=== PATIENT | female | born 1985 ===

== ENCOUNTER 2016-09-07 09:20 | Emergency (ER) | payer OTHER ==
[2016-09-07 10:40] VITALS: BMI 87.0
[2016-09-07] MEDS ORDERED: Lactated Ringer's 1,000 ML IV SCH (10:45)
[2016-09-07 11:44] LABS: BASO # 0.1 K/uL (0.0-0.2); BASO % 0.6 % (0.0-2.0); EOS # 0.1 K/uL (0.0-0.7); EOS % 1.3 % (0.0-4.0); HEMATOCRIT 29.1 % (34.0-47.0); LYMPH # 1.1 K/uL (1.0-4.3); MEAN CORPUSCULAR HGB CONC 33.7 g/dL (33.0-37.0); MEAN PLATELET VOLUME 8.3 fl (7.2-11.7); MONO # 0.6 K/uL (0.0-0.8); MONO % 7.2 % (0.0-10.0); NEUT % 78.9 % (50.0-75.0); RED CELL DISTRIBUTION WIDTH 15.4 % (11.5-14.5); WHITE BLOOD COUNT 8.8 K/uL (4.8-10.8)
[2016-09-07 11:54] LABS: RBC URINE 46 /hpf (0-3); URINE BACTERIA RARE (<OCC); URINE BILIRUBIN NEGATIVE (NEGATIVE); URINE BLOOD LARGE (NEGATIVE); URINE COLOR YELLOW (YELLOW); URINE GLUCOSE (UA) NEG (Normal); URINE KETONE NEGATIVE (NEGATIVE); URINE LEUKOCYTE ESTERASE LARGE Leu/uL (Negative); URINE PROTEIN 30 mg/dL (NEGATIVE); URINE UROBILINOGEN 0.2-1.0 mg/dL (0.2-1.0); WBC URINE 110 /hpf (0-5)
[2016-09-07 11:54] LABS: ALB/GLOB RATIO 0.8 (1.0-2.1); ALKALINE PHOSPHATASE 122 U/L (38-126); ALT/SGPT 18 U/L (9-52); AST/SGOT 26 U/L (14-36); BILIRUBIN,TOTAL 0.9 mg/dl (0.2-1.3); BLOOD UREA NITROGEN 3 mg/dl (7-17); CALCIUM 8.2 mg/dL (8.4-10.2); CARBON DIOXIDE 22 mmol/L (22-30); CHLORIDE 106 mmol/L (98-107); GFR AFRICAN-AMERICAN > 60; GLUCOSE,RANDOM 83 mg/dL (65-105); POTASSIUM 3.9 MMOL/L (3.6-5.0); SODIUM 141 mmol/l (132-148); TOTAL PROTEIN 7.1 G/DL (6.3-8.2)
--- NOTE | 2016-09-07 13:20 | OBHP ---
Datetime: 09/07/2016 10:35 IP Adm Impression: , intrauterine IP Admit Plan: Observation/Evaluation Admit Comment, IP Provider: at 33+4 wks presents with complaints of back and suprapubic since l ast night and fever of 103. Fever subsided with tylenol. States she heard 'popping sound' " that you hear when your water breaks". Denies hematuria, dysuria at present, but notes she did have it previou sly. Last coitus: 3 days ago. Kids are home sick with cold, running fevers. States renal u/s was done here recently. She received phone call last week, rx for antibiotics given. She has taken for past 2 days. PNC: [facility], Dr. Benson POBhx: 4 PMH: denies Medications: antibiotic Social: denies smoking. etoh Surgical: abdominoplasty Exam as above A: IUP 33+4 wks GA with UTI currently on antibiotic treatment, also with URI P: continuous FHT IVF CBC, CMP, UA Julio PGY1 Patient seen and examined with Dr. Ritter. Reassessment aferile, no leukocytosis, +anemia, UA: large blood , LE +, rare bacteria. Continue Antibiotics. Rx given for Feosol 325mg BID Follow up with Dr. Benson this week. ADDENDUM: PT seen and examined by me. Agree with above assessment and plan with following additions and cla rificatios: s: denies ctxs or vaginal bleeding; had noted urine in blood but not presently. she is uncertain o d name of antibiotic but is taking it. drinking water and oj USon 08/29 Renal : mild to moder rt hydronephrosis may be 2ndry to preg, no stones Bladder US: neg wbc 8.8 hgb 9.8 I: Hematuria- may be 2ndary to uti vs nephrolith Anemia Fever- at home most likely related to uri. nl wbc today P: d/c home. increase water intake. continue rx f/u fri in office- advised that urine cx will be ready by then rth w/ onset of fever, n, v or worsening pain Pelvic Type - PN: Adequate Extremities - PN: Normal Abdomen - PN: Normal Lungs - PN: Normal Heart - PN: Normal Neurologic - PN: Normal HEENT - PN: Normal General - PN: Normal FHR - Baseline A Provider: 140 Membranes, Provider: Intact Contraction Comments Provider: none Comments, ACOG Physical Exam: suprapubic tenderness- mild CVA tenderness- mild SSE: NO FLUID IN VAULT WITH AND WITHOUT VALSALVA. Pool Provider: Negative Nitrazine Provider: Negative Vital Signs Provider: Reviewed IP Chief Complaint: Maternal discomfort NICHD Variability Prov Fetus A: Moderate 6-25bpm NICHD Accel Fetus A IP Provider: 15X15 NICHD Decel Fetus A IP Provider: None Dilatation, Provider: 0 Effacement, Provider: 0 Station, Provider: -4 Genitourinary Exam: Normal
== END 2016-09-07 13:15 | disposition home or self-care (01) ==
LOC: H.EROB2 09:20
DX: O23.43 Unspecified infection of urinary tract in pregnancy, third trimester (principal); Z3A.33 33 weeks gestation of pregnancy

== ENCOUNTER 2016-09-28 14:15 | Emergency (ER) | payer OTHER ==
[2016-09-28 14:49] VITALS: BMI 39.4
--- NOTE | 2016-09-28 15:46 | OBHP ---
Datetime: 09/28/2016 15:36 IP Adm Impression: , intrauterine IP Admit Plan: Observation/Evaluation; Discharge home Admit Comment, IP Provider: Patient is a @ 36.4 wks with lower abdominal cramping, burning w ith urination, no vaginal bleeding, no leaking, +FM. Patient has no issues with antepartum or medical problems, x 4 previous with no complications, no previous surgeries, no allergies, no medicatio ns. Urine sent to lab. If any sign of infection will treat and send home wtih Macrobid. NO other sign s/symptoms of labor. Pelvic Type - PN: Adequate Extremities - PN: Normal Abdomen - PN: Normal Back - PN: Normal Breast - PN: Normal Lungs - PN: Normal Heart - PN: Normal Thyroid - PN: Normal Neurologic - PN: Normal HEENT - PN: Normal General - PN: Normal FHR - Baseline A Provider: 130 Contraction Comments Provider: irritability EGA AdmitDate IP: 36.4 Vital Signs Provider: Reviewed; Within Normal Limits IP Chief Complaint: Signs/symptoms UTI NICHD Variability Prov Fetus A: Moderate 6-25bpm NICHD Accel Fetus A IP Provider: [id number] NICHD Decel Fetus A IP Provider: None Genitourinary Exam: Normal DTRs - PN: Normal
[2016-09-28 15:48] LABS: RBC URINE 47 /hpf (0-3); URINE BACTERIA MOD (<OCC); URINE BILIRUBIN NEGATIVE (NEGATIVE); URINE BLOOD LARGE (NEGATIVE); URINE COLOR RED (YELLOW); URINE GLUCOSE (UA) NEG (Normal); URINE KETONE NEGATIVE (NEGATIVE); URINE LEUKOCYTE ESTERASE LARGE Leu/uL (Negative); URINE PROTEIN 100 mg/dL (NEGATIVE); URINE UROBILINOGEN 0.2-1.0 mg/dL (0.2-1.0); WBC URINE 134 /hpf (0-5)
--- NOTE | 2016-09-28 15:56 | OBDCSUM ---
Datetime: 09/28/2016 15:54 Discharged to, Provider: Home Follow up at, Provider: OB Disch Instr Activity: Normal activity Disch Instr Diet: Regular Discharge Instructions, Provider: Routine instructions given Discharge Time: 09/28/2016 15:54 Follow up in weeks, Provider: this week Disch Referrals: None Contraception discussed, Prov: No Discharge Comment, Provider: Return if increased bleeding, pain, temp Discharge Diagnosis Prov Other: UTI
== END 2016-09-28 16:10 | disposition home or self-care (01) ==
LOC: H.EROB2 14:15
DX: O23.43 Unspecified infection of urinary tract in pregnancy, third trimester (principal); Z3A.36 36 weeks gestation of pregnancy

== ENCOUNTER 2016-09-30 19:19 | Emergency (ER) | payer OTHER ==
[~2016-09-30 19:19] MED LIST: cefTRIAXone 2 GM in Sodium Chloride 0.9% 100 ML IVPB SCH
[2016-09-30] MEDS: Lactated Ringer's 1,000 ML IV SCH ×2 (20:40→21:40)
[2016-09-30 21:16] VITALS: BMI 39.3
[2016-09-30 21:48] LABS: RBC URINE 1019 /hpf (0-3); URINE BACTERIA OCC (<OCC); URINE BILIRUBIN NEGATIVE (NEGATIVE); URINE BLOOD LARGE (NEGATIVE); URINE COLOR RED (YELLOW); URINE GLUCOSE (UA) NEG (Normal); URINE KETONE NEGATIVE (NEGATIVE); URINE LEUKOCYTE ESTERASE LARGE Leu/uL (Negative); URINE PROTEIN 30 mg/dL (NEGATIVE); URINE UROBILINOGEN 0.2-1.0 mg/dL (0.2-1.0); WBC CLUMPS FEW /hpf; WBC URINE 457 /hpf (0-5)
--- NOTE | 2016-09-30 22:30 | OBHP ---
Datetime: 09/30/2016 20:54 IP Adm Impression: , intrauterine IP Admit Plan: Observation/Evaluation Admit Comment, IP Provider: Patient is a @ 36.6 wks presented to the [facility] after noticing elvia billiet dark red blood on her panties around 4pm. Since then every time she whipes she notices blood . Anay hernandez was here yesterday w/ complaints of lower abdominal cramping, burning with urination and was give n a script for Macrobid for treatment of her UTI. POBHX: 4 PMH: None PSH: Abdomenoplasty from [facility] Allergy: NKDA Med: PNV, Antibiotics for UTI ( does not recall name) Review of systems patient denies headache chest pain shortness of breath palpitations constipation positive for dysuria positive for hematuria no musculoskeletal or neurological complaints A/P Patient is a @ 36.6 wks w/ a UTI complaining of new onset of noticing of vaginal spoting - IV fluids - Recephin 3 grams - U/A and C_S - Continuous monitoring Branden Stahl PGY-1 The patient was seen with resident I agree with the note Patient noted to have resistant strain of Escherichia coli patient originally treated with Keflex will administer Rocephin patient to follow up in the office labor precautions provided Extremities - PN: Normal Abdomen - PN: Normal Lungs - PN: Normal Heart - PN: Normal General - PN: Normal FHR - Baseline A Provider: 135 Comments, ACOG Physical Exam: Suprapubic tenderness + Right CVA tenderness + EGA AdmitDate IP: 36.6 Vital Signs Provider: Reviewed; Within Normal Limits IP Chief Complaint: Signs/symptoms UTI NICHD Variability Prov Fetus A: Moderate 6-25bpm (Annotations: Data stored by CPN on behalf of user) NICHD Accel Fetus A IP Provider: 15X15 (Annotations: Data stored by CPN on behalf of user) FHR Category Provider Fetus A: Category I NICHD Decel Fetus A IP Provider: None
[2016-10-01] MEDS ORDERED: CEFTRIAXONE IVPB SCH (09:00)
[2016-10-01] MEDS ORDERED: SODIUM CHLORIDE 0.9% IVPB SCH (09:00)
== END 2016-09-30 23:59 | disposition home or self-care (01) ==
LOC: H.EROB2 19:19
DX: O26.853 Spotting complicating pregnancy, third trimester (principal); O23.43 Unspecified infection of urinary tract in pregnancy, third trimester; O47.03 False labor before 37 completed weeks of gestation, third trimester; Z3A.36 36 weeks gestation of pregnancy

== ENCOUNTER 2016-10-10 12:57 | Inpatient (IN) | payer OTHER ==
[2016-10-10 13:33] VITALS: BMI 39.1
[2016-10-10] MEDS ORDERED: Lactated Ringer's 1,000 ML IV SCH ×2 (13:36→13:45)
[2016-10-10 13:52] VITALS: BP 105/77; PULSE 79; RESP 18; TEMP 98.8
[2016-10-10] MEDS ORDERED: Oxytocin 30 units/LR 500ML 30 U/500 ML BAG IV ONE ×2 (13:58→14:40)
--- NOTE | 2016-10-10 14:05 | OBADHP ---
Datetime: 10/10/2016 14:03 Admit Comment, IP Provider: 30yo edc 10/22/2016 @ 38.2wks w/ c/o ctxs since 9am. SROM here on L_D . She denies complications with current preg. She sees dr. chen. +UTI with preg POBHX: 4 PMH: None PSH: Abdomenoplasty from [facility] Allergy: NKDA Med: PNV, Antibiotics for UTI ( does not recall name) SH: denies etoh, drugs or tobacco I: 38.2wks Labor P: Admit for expectant VD. For epidural Datetime: 10/10/2016 13:28 Pelvic Type - PN: Adequate Extremities - PN: Normal Abdomen - PN: Normal Lungs - PN: Normal Heart - PN: Normal Neurologic - PN: Normal HEENT - PN: Normal General - PN: Normal Presentation-Admit: Vertex FHR - Baseline A Provider: 150 Membranes, Provider: Ruptured Contraction Comments Provider: q5min Comments, ACOG Physical Exam: gbs neg hiv, rpr, hepB neg ri IP Chief Complaint: Uterine contractions NICHD Variability Prov Fetus A: Moderate 6-25bpm NICHD Accel Fetus A IP Provider: 15X15 FHR Category Provider Fetus A: Category I NICHD Decel Fetus A IP Provider: None Dilatation, Provider: 6 Effacement, Provider: 90 Station, Provider: -1 Genitourinary Exam: Normal EGA AdmitDate IP: 38.2 IP Adm Impression: Term, intrauterine IP Admit Plan: Admit to unit; Initiate labor protocol Datetime: 09/30/2016 20:54 Vital Signs Provider: Reviewed; Within Normal Limits Datetime: 09/28/2016 15:36 Back - PN: Normal Breast - PN: Normal Thyroid - PN: Normal DTRs - PN: Normal Datetime: 09/07/2016 10:35 Pool Provider: Negative Nitrazine Provider: Negative
[2016-10-10 14:13] LABS: BASO # 0.1 K/uL (0.0-0.2); EOS # 0.1 K/uL (0.0-0.7); EOS % 0.8 % (0.0-4.0); HEMATOCRIT 32.1 % (34.0-47.0); LYMPH # 1.5 K/uL (1.0-4.3); LYMPH % 17.6 % (20.0-40.0); MEAN CELL VOLUME 82.1 fl (81.0-99.0); MEAN CORPUSCULAR HEMOGLOBIN 26.4 pg (27.0-31.0); MEAN CORPUSCULAR HGB CONC 32.1 g/dL (33.0-37.0); MEAN PLATELET VOLUME 8.4 fl (7.2-11.7); MONO # 0.5 K/uL (0.0-0.8); MONO % 6.4 % (0.0-10.0); NEUT # 6.1 K/uL (1.8-7.0); NEUT % 74.2 % (50.0-75.0); RED CELL DISTRIBUTION WIDTH 16.1 % (11.5-14.5); WHITE BLOOD COUNT 8.3 K/uL (4.8-10.8)
[2016-10-10] MEDS ORDERED: Oxycodone/Acetaminophen 5/325 mg Tab PO PRN ×4 (14:44→16:13)
--- NOTE | 2016-10-10 14:54 | OBDS ---
MATERNAL INFORMATION Maternal Complications: None Provider Comments: Pt progressed to complete and pushed to deliver a viable female infant through li ght meconium-stained fluid. Delivery was precipitous and baby delivered in the bed at 14:24. Apgars 9 and 9. Wt 6#12.3, 3070 gms. Mouth and nares bulb-suctioned. placed on mother's abdomen. Cord clamped and cut. Cord blood collected. Placenta delivered spontaneously intact w/ 3vc at 14:30 . Pt and baby tolerated procedure well. EBL: 150 mL LABOR SUMMARY EDC: 10/22/2016 00:00 No. Babies in Womb: 1 Attempted: No LABOR INFORMATION Reason for Induction: Not Applicable Onset of Labor: 10/10/2016 09:00 Oxytocin: N/A Group B Beta Strep: Negative Antibiotics # of Doses: none Antibiotics Time of Last Dose: na Steroids Given: None Reason Steroids Not Administered: Not Applicable MEMBRANES Membranes Rupture Method: Spontaneous Rupture of Membranes: 10/10/2016 13:20 Amniotic Fluid Color: Light Meconium Amniotic Fluid Amount: Small Amniotic Fluid Odor: Normal INFORMATION BABY A Gestational Age at Delivery: 38.2 Gestational Status: Term IDENTIFICATION/MEDS BABY A ID Band Number: [id number]
[2016-10-11 08:09] LABS: HEMATOCRIT 28.9 % (34.0-47.0); MEAN CELL VOLUME 81.8 fl (81.0-99.0); MEAN CORPUSCULAR HEMOGLOBIN 26.6 pg (27.0-31.0); MEAN CORPUSCULAR HGB CONC 32.5 g/dL (33.0-37.0); RED CELL DISTRIBUTION WIDTH 16.6 % (11.5-14.5); WHITE BLOOD COUNT 8.6 K/uL (4.8-10.8)
--- NOTE | 2016-10-11 09:30 | OBPPN ---
Datetime: 10/11/2016 09:26 PP Pain Prov: Within normal limits PP Abdomen/Uterus Prov: Normal PP Progress Prov: Normal PP Impression Prov: Normal progression PP Plan Prov: Continue present management PP Progress Note Prov: PPD 1 s/p , doing well, breast and bottle feeding Continue current management Vital Signs Provider PP: Reviewed; Within Normal Limits
--- NOTE | 2016-10-12 08:59 | OBDCSUM ---
Datetime: 10/12/2016 08:57 Discharged to, Provider: Home Follow up at, Provider: Darnell Disch Instr Activity: Normal activity Disch Instr Diet: Regular Discharge Instructions, Provider: Routine instructions given Discharge Diagnosis, Provider: Term Delivered Follow up in weeks, Provider: 6w Disch Referrals: None Contraception discussed, Prov: Yes Disch Activity Restrictions: No sexual activity; Nothing in vagina - [place], tampons, douche
--- NOTE | 2016-10-12 08:59 | OBPPN ---
Datetime: 10/12/2016 08:55 PP Pain Prov: Within normal limits PP Nausea Prov: Denies PP Flatus Prov: Yes PP BM Prov: Yes PP Breasts Prov: Not Done PP Heart Prov: Normal PP Lungs Prov: Normal PP Abdomen/Uterus Prov: Normal PP Lochia Prov: Normal PP Vulva/Perineum Prov: Normal PP CVA Tenderness Prov: Normal PP Extremities Prov: Normal PP Progress Prov: Normal PP Impression Prov: Normal progression PP Plan Prov: Discharge PP Progress Note Prov: O pos / Ab neg Rubella Immune H/H 02/11 A: S/P day 2 Anemia - aymptomatic PLAN: discharge home follow up in 6w Vital Signs Provider PP: Reviewed; Within Normal Limits
== END 2016-10-12 14:10 | disposition home or self-care (01) | DRG 373 ==
LOC: H.EROB2 12:57 → H.L&D 13:37 → H.OB/GYN 16:06
PROVIDERS: ADMIT Obstetrics & Gynecology; ATTEND Obstetrics & Gynecology
PROC: 10E0XZZ Delivery of Products of Conception, External Approach (ICD-10-PCS; principal; 2016-10-10)
PROC: 4A1HXCZ Monitoring of Products of Conception, Cardiac Rate, External Approach (ICD-10-PCS; 2016-10-10)
DX: O77.0 Labor and delivery complicated by meconium in amniotic fluid (principal); D64.9 Anemia, unspecified; O99.02 Anemia complicating childbirth; Z37.0 Single live birth; Z3A.38 38 weeks gestation of pregnancy

== ENCOUNTER 2017-01-22 08:06 | Day surgery (SDC) | payer OTHER ==
[2017-01-19 17:53] VITALS: BMI 34.8
[2017-01-22 08:45] LABS: HEMATOCRIT 37.3 % (34.0-47.0); MEAN CELL VOLUME 87.8 fl (81.0-99.0); MEAN CORPUSCULAR HEMOGLOBIN 28.6 pg (27.0-31.0); MEAN CORPUSCULAR HGB CONC 32.6 g/dL (33.0-37.0); RED CELL DISTRIBUTION WIDTH 15.8 % (11.5-14.5); WHITE BLOOD COUNT 5.5 K/uL (4.8-10.8)
[2017-01-22] MEDS ORDERED: Propofol 10 mg/ml Inj (20 ML) ONE (10:47)
[2017-01-22] MEDS ORDERED: Rocuronium 10 mg/ml (5 ml) ONE (10:47)
[2017-01-22] MEDS ORDERED: Midazolam 2 MG/2 ML VIAL ONE (10:47)
[2017-01-22] MEDS ORDERED: Succinylcholine 200 mg/10 ml Inj IV ONE (10:47)
[2017-01-22] MEDS ORDERED: Neostigmine Methylsulfate 3mg/3ml Syringe IV ONE (10:48)
[2017-01-22] MEDS ORDERED: Lactated Ringer's 1,000 ML IV ONE (10:50)
[2017-01-22] MEDS ORDERED: Bupivacaine 0.5% Inj(30mL) ONE (10:51)
[2017-01-22] MEDS ORDERED: Lidocaine 1% Inj (20ml) ONE (10:51)
[2017-01-22] MEDS ORDERED: Bupivacaine 0.5% 50 ML IJ ONE (11:20)
[2017-01-22] MEDS ORDERED: Lactated Ringer's 500 ML IV ONE (12:00)
[2017-01-22] MEDS ORDERED: DiphenhydrAMINE 50 mg/ml Inj IVP PRN (12:17)
[2017-01-22] MEDS ORDERED: HYDROmorphone 0.5 mg/0.5 ml ISec IVP PRN (12:17)
[2017-01-22] MEDS ORDERED: Lactated Ringer's 1,000 ML IV SCH (12:17)
[2017-01-22] MEDS ORDERED: Oxycodone/Acetaminophen 5/325 mg Tab PO PRN (12:19)
[2017-01-22] MEDS ORDERED: Oxycodone/Acetaminophen 5/325 mg Tab PO ONE (13:45)
--- NOTE | 2017-01-22 15:42 | OP ---
PROCEDURE DATE: PREOPERATIVE DIAGNOSIS: Voluntary sterilization. POSTOPERATIVE DIAGNOSIS: Voluntary sterilization. PROCEDURE: Laparoscopic sterilization. SURGEON: Dr. Hamzah Benson. HYDRATION PLANT OPERATOR: None. ANESTHESIA ADMINISTERED BY: Dr. Tellez. ESTIMATED BLOOD LOSS: Minimal. URINE OUTPUT: The patient put out approximately 300 mL of clear urine. INTAKE: The patient received approximately 1 L D5 LR intraoperatively. OPERATIVE FINDINGS: An 8-week size uterus with a right-sided fibroid and perimetrium. Normal ovaries and tubes were identified. DESCRIPTION OF PROCEDURE: After informed consent was obtained, we discussed the risks, benefits and alternatives to all forms of contraception including vasectomy. The patient opted for voluntary sterilization. The patient was taken to the operating room. She was prepped and draped in a normal sterile fashion, placed in a dorsal lithotomy position. Attention was then turned to the vagina. A weighted-speculum was inserted into the vagina. The cervix was visualized and grasped with a single-tooth tenaculum. The cervix was then gently dilated. The HUMI uterine manipulator was inserted into the uterine cavity as a means to manipulate the uterus. Hale catheter was inserted in the bladder to monitor the patient's urinary output. Attention was then turned to Diallo's point. Marcaine was infused. A 5 mm incision was made. The Veress needle was introduced ed into the abdominal cavity. The abdomen was then insufflated to 15 mmHg. A 5 mm trocar was then introduced in the abdominal cavity. Placement was confirmed with the laparoscope. The abdomen was surveyed with the findings noted above. Attention was then turned to approximately 3 cm superior to the left anterior iliac crest. A 5-mm incision was made. A 5-mm port was introduced in to the abdominal cavity under direct visualization. Attention was then turned to the fallopian tubes. The fallopian tubes were then serially coagulated with LigaSure then transected. Similar procedure was performed on the left. Hemostasis was noted. All instruments were then removed from the abdomen. Sponge, lap, needle, and instrument counts were correct x2. Skin was closed with Dermabond and the patient was taken to the recovery room in awake and stable condition. Hamzah Benson MD
[2017-01-22 15:44] VITALS: BP 106/73; PULSE 74; RESP 18; TEMP 98.5; O2SAT 97
== END 2017-01-22 16:05 | disposition home or self-care (01) ==
LOC: H.OPSURG 08:06
PROVIDERS: ATTEND Obstetrics & Gynecology Gynecology
DX: Z30.2 Encounter for sterilization (principal)
CPT/HCPCS: 36415; 58670; 85027; J0330; J2001; J2250; J2405; J2704; J2710; J3010; J7120